=== PATIENT | male | born 1935 | race Caucasian/White ===

== ENCOUNTER 2021-09-24 12:32 | Emergency (ER) | payer OTHER | END 2021-09-24 15:15 | disposition home or self-care (01) | LOC: LB.ED 12:32 | DX: I50.9 Heart failure, unspecified (principal); I48.91 Unspecified atrial fibrillation; J44.9 Chronic obstructive pulmonary disease, unspecified; Z20.822 Contact with and (suspected) exposure to COVID-19 | CPT/HCPCS: 36415; 71045; 80053; 83880; 85025; 87430; 87804; 87804-59; 99284-25; U0002 ==